=== PATIENT | male | born 1985 | race Caucasian/White ===

== ENCOUNTER 2017-01-16 04:08 | Emergency (ER) | payer MEDICAID, OTHER ==
[~2017-01-16] VITALS: Ht 177.8 cm; Wt 74.5 kg
[2017-01-16] MEDS ORDERED: ONDANSETRON ODT 4 MG PO ONE (05:00)
[2017-01-16] MEDS ORDERED: OXYcodone/APAP 5/325MG TABLET PO ONE (05:00)
[2017-01-16] MEDS ORDERED: DIAZEPAM 5 MG TABLET PO ONE (05:00)
[2017-01-16] MEDS ORDERED: OXYcodone/APAP 5/325MG TABLET ONE (05:01)
[2017-01-16] MEDS ORDERED: DIAZEPAM 5 MG TABLET ONE (05:01)
[2017-01-16] MEDS ORDERED: ONDANSETRON ODT 4 MG ONE (05:05)
[2017-01-16 05:58] VITALS: BP 120/74
== END 2017-01-16 06:01 | disposition home or self-care (01) ==
LOC: ED 05:55
DX: G89.29 Other chronic pain (principal); M54.5 Low back pain; M54.6 Pain in thoracic spine
CPT/HCPCS: 99284; Q0162

== ENCOUNTER 2017-05-02 13:24 | Emergency (ER) | payer MEDICAID ==
[~2017-05-02] VITALS: Ht 177.8 cm; Wt 75.3 kg
[2017-05-02 13:25] VITALS: BP 114/79
[2017-05-02] MEDS ORDERED: KETOROLAC 30 MG/1 ML ONE (13:59)
[2017-05-02] MEDS ORDERED: DIAZEPAM 5 MG/ML, 2ML IM ONE (14:00)
[2017-05-02] MEDS ORDERED: KETOROLAC 60 MG/2 ML IM ONE (14:00)
== END 2017-05-02 15:24 | disposition home or self-care (01) ==
LOC: ED 15:23
DX: M54.6 Pain in thoracic spine (principal); M54.5 Low back pain; F17.200 Nicotine dependence, unspecified, uncomplicated
CPT/HCPCS: 96372; 99284; J1885; J3360

== ENCOUNTER 2017-07-25 19:36 | Emergency (ER) | payer MEDICAID ==
[~2017-07-25] VITALS: Ht 180.3 cm; Wt 73.2 kg
[2017-07-25 19:39] VITALS: BP 114/84
[2017-07-25] MEDS ORDERED: OXYcodone/APAP 5/325MG TABLET ONE (20:14)
[2017-07-25] MEDS ORDERED: IBUPROFEN 200 MG TABLET ONE (20:15)
[2017-07-25] MEDS ORDERED: IBUPROFEN 200 MG TABLET PO ONE (20:30)
[2017-07-25] MEDS ORDERED: OXYcodone/APAP 10/325MG TABLET PO ONE (20:30)
== END 2017-07-25 21:10 | disposition home or self-care (01) ==
LOC: ED 21:04
DX: S32.038A Other fracture of third lumbar vertebra, initial encounter for closed fracture (principal); S32.048A Other fracture of fourth lumbar vertebra, initial encounter for closed fracture; X58.XXXA Exposure to other specified factors, initial encounter; Y93.89 Activity, other specified; Y99.8 Other external cause status; Y92.89 Other specified places as the place of occurrence of the external cause
CPT/HCPCS: 72110; 99284

== ENCOUNTER 2017-10-26 14:43 | Emergency (ER) | payer MEDICAID ==
[~2017-10-26] VITALS: Ht 177.8 cm; Wt 67.0 kg
[2017-10-26 15:21] LABS: BASOPHILS # (AUTO) 0.04 x10^3/uL (0-0.1); BASOPHILS % (AUTO) 1 % (0-1); EOSINOPHILS # (AUTO) 0.02 x10^3/uL (0-0.4); EOSINOPHILS % (AUTO) 0 % (1-7); LYMPHOCYTES # (AUTO) 2.46 x10^3/uL (1-3.4); LYMPHOCYTES % (AUTO) 35 % (22-44); MD NO; MEAN CORPUSCULAR HEMOGLOBIN 30.8 pg (27.5-34.5); MEAN CORPUSCULAR HGB CONC 34.3 g/dL (33.2-36.2); MEAN CORPUSCULAR VOLUME 89.7 fL (81-97); MEAN PLATELET VOLUME 7.8 fL (7.4-10.4); MONOCYTES % (AUTO) 7 % (2-9); NEUTROPHILS # (AUTO) 3.94 x10^3/uL (1.8-6.8); NEUTROPHILS % (AUTO) 57 % (42-75); PLATELET COUNT 435 x10^3/uL (130-400); RED CELL DISTRIBUTION WIDTH 15.1 % (9.4-14.8)
[2017-10-26] MEDS ORDERED: KETOROLAC 30 MG/1 ML IM ONE (15:30)
[2017-10-26 15:34] LABS: ALANINE AMINOTRANSFERASE 42 U/L (12-78); ALBUMIN 4.9 g/dL (3.4-5.0); ANION GAP 9 mmol/L (5-15); CALCIUM 9.3 mg/dL (8.5-10.1); CHLORIDE 111 mmol/L (98-107); CREATININE 1.16 mg/dL (0.7-1.3)
[2017-10-26 15:36] LABS: ALKALINE PHOSPHATASE 58 U/L (45-117); BILIRUBIN,TOTAL 0.3 mg/dL (0.2-1.0)
[2017-10-26 15:37] LABS: ACETAMINOPHEN < 2 mcg/mL (10-30); SALICYLATE LEVEL < 1.7 mg/dL (2.8-20.0)
[2017-10-26 16:02] LABS: AMPHETAMINE SCREEN, URINE Negative (Negative); BARBITURATE SCREEN, URINE Negative (Negative); BENZODIAZEPINE SCREEN, URINE Negative (Negative); CANNABINOID SCREEN, URINE Positive (Negative); COCAINE SCREEN, URINE Positive (Negative); METHADONE SCREEN, URINE Negative (Negative); OPIATE SCREEN, URINE Negative (Negative)
[2017-10-26 18:40] VITALS: BP 122/81
[2017-10-26] MEDS ORDERED: KETOROLAC 30 MG/1 ML ONE (21:12)
== END 2017-10-26 21:30 | disposition home or self-care (01) ==
LOC: ED 15:19
DX: F32.9 Major depressive disorder, single episode, unspecified (principal); Z79.899 Other long term (current) drug therapy
CPT/HCPCS: 36415; 80053; 80307; 80329; 85025; 93005; 96372; 99285; J1885; G0480

== ENCOUNTER 2018-05-15 19:08 | Emergency (ER) | payer MEDICAID ==
[~2018-05-15] VITALS: Ht 177.8 cm; Wt 75.7 kg
[2018-05-15 19:11] VITALS: BP 146/88
[2018-05-15] MEDS ORDERED: METHOCARBAMOL 750 MG TABLET ONE (19:39)
[2018-05-15] MEDS ORDERED: METHOCARBAMOL 750 MG TABLET PO ONE (20:00)
[2018-05-15 20:22] LABS: BILIRUBIN, DIRECT 0.2 mg/dL (0.1-0.2)
[2018-05-15 20:24] LABS: BILIRUBIN,INDIRECT 0.5 mg/dL (0.0-2.0); BILIRUBIN,TOTAL 0.7 mg/dL (0.2-1.0); TOTAL PROTEIN 7.3 g/dL (6.4-8.2)
== END 2018-05-15 21:14 | disposition home or self-care (01) ==
LOC: ED 21:00
DX: S29.012A Strain of muscle and tendon of back wall of thorax, initial encounter (principal); G89.11 Acute pain due to trauma; F32.9 Major depressive disorder, single episode, unspecified; W19.XXXA Unspecified fall, initial encounter; Y93.89 Activity, other specified; Y92.89 Other specified places as the place of occurrence of the external cause; Y99.8 Other external cause status
CPT/HCPCS: 36415; 72072; 80076; 99284

== ENCOUNTER 2018-10-14 21:38 | Emergency (ER) | payer MEDICAID ==
[~2018-10-14] VITALS: Ht 177.8 cm; Wt 68.7 kg
[2018-10-14 21:47] VITALS: BP 121/78
--- NOTE | 2018-10-14 21:56 | NUR ---
ASSESSMENT MADE. CHART UP FOR MD TO SEE.
--- NOTE | 2018-10-14 22:00 | NUR ---
PA AT BEDSIDE.
[2018-10-14] MEDS ORDERED: ACETAMINOPHEN 500 MG TABLET ONE (23:07)
[2018-10-14] MEDS ORDERED: ONDANSETRON ODT 4 MG ONE (23:10)
[2018-10-14] MEDS ORDERED: ONDANSETRON ODT 8 MG ONE (23:11)
[2018-10-14] MEDS ORDERED: ACETAMINOPHEN 325 MG TABLET PO ONE (23:30)
[2018-10-14] MEDS ORDERED: ONDANSETRON ODT 4 MG PO ONE (23:30)
== END 2018-10-14 23:39 | disposition home or self-care (01) ==
LOC: ED 22:45
DX: S00.93XA Contusion of unspecified part of head, initial encounter (principal); M54.2 Cervicalgia; F17.200 Nicotine dependence, unspecified, uncomplicated; V00.131A Fall from skateboard, initial encounter; Y93.51 Activity, roller skating (inline) and skateboarding; Y92.410 Unspecified street and highway as the place of occurrence of the external cause; Y99.8 Other external cause status
CPT/HCPCS: 70450; 72125; 99284; Q0162

== ENCOUNTER 2020-05-25 21:12 | Emergency (ER) | payer MEDICAID ==
[~2020-05-25] VITALS: Ht 180.3 cm; Wt 79.8 kg
[2020-05-25 21:23] VITALS: BP 112/88
[2020-05-25] MEDS ORDERED: DEXAMETHASONE 4 MG TABLET PO ONE (22:00)
[2020-05-25] MEDS ORDERED: maalox/diphenh/lido/sucralfate 5 ML PO PRN (22:00)
[2020-05-25] MEDS ORDERED: DEXAMETHASONE 4 MG TABLET ONE (22:13)
== END 2020-05-25 22:48 | disposition home or self-care (01) ==
LOC: ED 22:00
DX: J02.9 Acute pharyngitis, unspecified (principal); R59.9 Enlarged lymph nodes, unspecified; F17.210 Nicotine dependence, cigarettes, uncomplicated
CPT/HCPCS: 87081; 87880; 99283; 99406

== ENCOUNTER 2020-06-10 22:12 | Emergency (ER) | payer MEDICAID ==
[~2020-06-10] VITALS: Ht 177.8 cm; Wt 72.0 kg
[2020-06-10 22:16] VITALS: BP 126/86
[2020-06-10] MEDS ORDERED: KETOROLAC 30 MG/1 ML ONE (22:52)
[2020-06-10] MEDS ORDERED: KETOROLAC 30 MG/1 ML IM ONE (23:00)
== END 2020-06-10 23:41 | disposition home or self-care (01) ==
LOC: ED 22:39
DX: S20.212A Contusion of left front wall of thorax, initial encounter (principal); G89.11 Acute pain due to trauma; F17.200 Nicotine dependence, unspecified, uncomplicated; Y04.8XXA Assault by other bodily force, initial encounter; Y93.89 Activity, other specified; Y92.488 Other paved roadways as the place of occurrence of the external cause; Y99.8 Other external cause status
CPT/HCPCS: 71101; 93005; 96372; 99283; J1885